=== PATIENT | female | born 1995 ===

== ENCOUNTER 2019-03-24 12:19 | Emergency (ER) | payer OTHER ==
[2019-03-24] MEDS ORDERED: Sodium Chloride 0.9% 1,000 ML IV STA (13:01)
--- NOTE | 2019-03-24 14:02 | ED PDOC ---
Arrival/HPI - General Chief Complaint: Fever Time Seen by Provider: 03/24/19 12:21 Historian: Patient - History of Present Illness Narrative History of Present Illness (Text): 03/24/19 13:58 23-year-old female presents today with a 4-day history of sore throat nasal congestion and fever. Patient was seen at a clinic 2 days ago and was started on Zithromax for pharyngitis. Patient presents today because she states she is still having fever and was feeling a little nauseous today. She denies abdominal pain. No chest pain or shortness of breath. She is complaining of low-grade fever. No medications have been taken for fever reduction today. no urinary symptoms. no back pain. no other complaints. Time/Duration: Other (4 days sore throat and fever) Symptom Onset: Gradual Symptom Course: Unchanged Quality: Aching, Burning Severity Level: 4 Past Medical History - Provider Review Nursing Documentation Reviewed: Yes - Travel History Have you recently traveled outside [place] w/in the past 3 mons?: No - Psychiatric Hx Substance Use: No Family/Social History - Physician Review Nursing Documentation Reviewed: Yes Family/Social History: Unknown Family HX Smoking Status: Light Smoker < 10 Cigarettes Daily Hx Alcohol Use: Yes Frequency of alcohol use: Socially Hx Substance Use: No Allergies/Home Meds Allergies/Adverse Reactions: Allergies No Known Allergies Allergy (Verified 03/24/19 12:26) Home Medications: Home Meds Medication Instructions Recorded Confirmed Azithromycin [Zithromax] 250 mg PO DAILY 03/24/19 03/24/19 Benzonatate [Tessalon Perle] 200 mg PO TID 03/24/19 03/24/19 Review of Systems - Review of Systems Constitutional: Fatigue, Fevers ENT: Sore Throat, Sinus Congestion Respiratory: absent: SOB, Cough Cardiovascular: absent: Chest Pain, Palpitations Gastrointestinal: Nausea. absent: Abdominal Pain, Constipation, Diarrhea, Vomiting, Appetite Changes Genitourinary Female: absent: Dysuria Musculoskeletal: absent: Arthralgias, Back Pain, Neck Pain Skin: absent: Rash, Pruritis Neurological: absent: Headache, Dizziness Psychiatric: absent: Anxiety, Depression, Suicidal Ideation Physical Exam Vital Signs Reviewed: Yes Vital Signs Temp Pulse Resp BP Pulse Ox 03/24/19 12:22 100.4 F H 126 H 18 97/58 L 99 Temperature: Febrile Blood Pressure: Normal Pulse: Tachycardic Respiratory Rate: Normal Appearance: Positive for: Well-Appearing, Non-Toxic, Comfortable Pain Distress: None Mental Status: Positive for: Alert and Oriented X 3 - Systems Exam Head: Present: Atraumatic Pupils: Present: PERRL Extroacular Muscles: Present: EOMI Conjunctiva: Present: Normal Ears: Present: Normal, NORMAL TM Mouth: Present: Moist Mucous Membranes, Normal Lips, Normal Tounge. No: Drooling, Trismus Pharnyx: Present: ERYTHEMA, EXUDATE. No: TONSILS ENLARGED, Peritonsilar Swelling, Uvular Deviation Nose (External): Present: Atraumatic Nose (Internal): Present: Normal Inspection Neck: Present: Normal Range of Motion, Lymphadenopathy, Trachea Midline Respiratory/Chest: Present: Clear to Auscultation, Good Air Exchange. No: Respiratory Distress, Accessory Muscle Use Cardiovascular: Present: Regular Rate and Rhythm, Normal S1, S2. No: Murmurs Abdomen: Present: Guarding. No: Tenderness, Rebound Upper Extremity: Present: Normal ROM Lower Extremity: Present: Normal ROM Neurological: Present: GCS=15, Speech Normal Skin: Present: Warm, Dry, Normal Color. No: Rashes Psychiatric: Present: Alert, Oriented x 3 Medical Decision Making ED Course and Treatment: 03/24/19 15:52 pt c/o sore throat x 4 days. febrile. no distress. Patient is nontoxic well appearing in no distress. Tolerating solids and liquids. toradol amoxicillin tylenol Patient given 1 L normal saline IV bolus Patient reassessment: Patient feeling better after medications, vital signs stable. Moist mucous membranes. I advised follow up with primary care physician within the next 2 days, advised to increase fluids take medications as prescribed and return if symptoms worsen persist or if new symptoms develop. Patient was advised to follow-up with ENT specialist. Patient verbalizes understanding of discharge instructions and need for immediate followup. All aspects of this case were discussed the attending of record. IMPRESSION; pharyngitis Motrin every 6 hours as needed for pain/fever reduction Increase fluids Amoxicillin 3 times daily x10 days Follow up primary care physician within the next 2 days Follow-up with ENT specialist within the next 2 days Saltwater gargles, throat lozenges Return if symptoms worsen persist or if new symptoms develop Reassessment Condition: Re-examined, Improved - Medication Orders Current Medication Orders: Sodium Chloride (Sodium Chloride 0.9%) 1,000 mls @ 999 mls/hr IV .Q1H1M STA Stop: 03/24/19 14:01 Last Admin: 03/24/19 13:25 Dose: 999 mls/hr eMAR Start Stop Document 03/24/19 13:25 EQ (Rec: 03/24/19 13:26 EQ [id number] Intravenous Solution Start Date 03/24/19 Start Time 13:26 Discontinued Medications Acetaminophen (Tylenol 325mg Tab) 975 mg PO STAT STA Stop: 03/24/19 13:02 Last Admin: 03/24/19 13:26 Dose: 975 mg MAR Pain/Vitals Document 03/24/19 13:26 EQ (Rec: 03/24/19 13:26 EQ [id number] Pain Reassessment Is This A Pain ReAssessment? No Presence of Pain Presence of Pain Yes Ketorolac Tromethamine (Toradol) 15 mg IVP STAT STA Stop: 03/24/19 13:02 Last Admin: 03/24/19 13:26 Dose: 15 mg MAR Pain Assessment Document 03/24/19 13:26 EQ (Rec: 03/24/19 13:26 EQ [id number] Pain Reassessment Is this a pain reassessment? No Sleep Is patient sleeping during reassessment? No Presence of Pain Presence of Pain Yes IVP Administration Document 03/24/19 13:26 EQ (Rec: 03/24/19 13:26 EQ [email or web address] Charges for Administration # of IVP Administrations 1 Disposition/Present on Arrival - Present on Arrival Any Indicators Present on Arrival: No History of DVT/PE: No History of Uncontrolled Diabetes: No Urinary Catheter: No History of Decub. Ulcer: No History Surgical Site Infection Following: None - Disposition Have Diagnosis and Disposition been Completed?: Yes Diagnosis: Pharyngitis Disposition: HOME/ ROUTINE Disposition Time: 15:56 Patient Plan: Discharge Condition: GOOD Discharge Instructions (ExitCare): Sore Throat, Adult (DC) Additional Instructions: Motrin every 6 hours as needed for pain/fever reduction Increase fluids Amoxicillin 3 times daily x10 days Follow up primary care physician within the next 2 days Follow-up with ENT specialist within the next 2 days Saltwater gargles, throat lozenges Return if symptoms worsen persist or if new symptoms develop Prescriptions: Amoxicillin 500 mg PO TID #30 tab Ibuprofen [Motrin] 600 mg PO Q6H PRN #20 tab PRN Reason: pain/fever reduction Referrals: Daniel Avery DO [Doctor Osteopathy] - Follow up with primary Amanda Finney MD [Medical Doctor] - Follow up with primary [facility] [Outside] - Follow up with primary Forms: [facility] ([place]), WORK NOTE, SCHOOL NOTE
[2019-03-24] MEDS ORDERED: Penicillin G Benzathine 1.2 Mill Unit/2 ml Syr IM STA (14:05)
[2019-03-24] MEDS ORDERED: Sodium Chloride 0.9% 500 ML IV STA (14:44)
[2019-03-24 15:16] VITALS: RESP 18
[2019-03-24 15:56] VITALS: BP 101/56; PULSE 99; TEMP 98.7; O2SAT 100
== END 2019-03-24 16:25 | disposition home or self-care (01) ==
LOC: ED 12:19
DX: J02.9 Acute pharyngitis, unspecified (principal); F17.210 Nicotine dependence, cigarettes, uncomplicated
CPT/HCPCS: 81025; 87070; 87430; 96374; 99284; J1885; J7030; J7040